=== PATIENT | female | born 2000 | race Caucasian/White ===

== ENCOUNTER 2018-11-05 16:28 | Outpatient (CLI) | payer OTHER | END 2018-11-05 20:01 | disposition home or self-care (01) | LOC: OBT 16:28 → L-D 16:29 → OBT 20:01 | DX: O26.893 Other specified pregnancy related conditions, third trimester (principal); R10.9 Unspecified abdominal pain; Z3A.29 29 weeks gestation of pregnancy | CPT/HCPCS: 76817; 76818; 85460; 86850; 86900; 86901 ==